=== PATIENT | female | born 1940 | race Caucasian/White ===

== ENCOUNTER 2018-08-30 08:00 | Outpatient (CLI) | payer MEDICARE, BC ==
[2018-08-30] MEDS ORDERED: BUPIVACAINE 0.5 % PF 150 MG/30 ML VIAL IJ ONE (09:30)
[2018-08-30] MEDS ORDERED: ETHYL CHLORIDE SPRAY 1 EA BOTTLE TP ONE (09:30)
== END 2018-08-30 23:59 | disposition home or self-care (01) ==
LOC: WOU 08:00
PROVIDERS: ATTEND Podiatrist Foot & Ankle Surgery
DX: I87.2 Venous insufficiency (chronic) (peripheral) (principal); L97.218 Non-pressure chronic ulcer of right calf with other specified severity; S81.811S Laceration without foreign body, right lower leg, sequela; W45.8XXS Other foreign body or object entering through skin, sequela; E78.5 Hyperlipidemia, unspecified; I25.10 Atherosclerotic heart disease of native coronary artery without angina pectoris; Z79.82 Long term (current) use of aspirin; Z79.899 Other long term (current) drug therapy; L03.115 Cellulitis of right lower limb; R60.0 Localized edema
CPT/HCPCS: 11042; 87070; A6402; J3490

== ENCOUNTER 2018-09-03 10:30 | Outpatient (CLI) | payer MEDICARE, BC | END 2018-09-03 23:59 | disposition home or self-care (01) | LOC: WOU 10:30 | PROVIDERS: ATTEND Podiatrist Foot & Ankle Surgery | DX: I87.2 Venous insufficiency (chronic) (peripheral) (principal); L97.212 Non-pressure chronic ulcer of right calf with fat layer exposed; L03.90 Cellulitis, unspecified; R60.0 Localized edema; M19.90 Unspecified osteoarthritis, unspecified site; Z79.82 Long term (current) use of aspirin; Z79.01 Long term (current) use of anticoagulants | CPT/HCPCS: 11042; A6402 ==

== ENCOUNTER 2018-09-06 10:14 | Outpatient (CLI) | payer MEDICARE, BC | END 2018-09-06 23:59 | disposition home or self-care (01) | LOC: WOU 10:14 | PROVIDERS: ATTEND Podiatrist Foot & Ankle Surgery | DX: I87.2 Venous insufficiency (chronic) (peripheral) (principal); L97.812 Non-pressure chronic ulcer of other part of right lower leg with fat layer exposed; R60.0 Localized edema; Z79.01 Long term (current) use of anticoagulants; Z91.040 Latex allergy status | CPT/HCPCS: 11042; A6402; J3490; 11044 ==

== ENCOUNTER 2018-09-17 10:00 | Outpatient (CLI) | payer MEDICARE, BC | END 2018-09-17 23:59 | disposition home or self-care (01) | LOC: WOU 10:00 | PROVIDERS: ATTEND Podiatrist Foot & Ankle Surgery | DX: I87.2 Venous insufficiency (chronic) (peripheral) (principal); L97.812 Non-pressure chronic ulcer of other part of right lower leg with fat layer exposed; R60.0 Localized edema; Z79.02 Long term (current) use of antithrombotics/antiplatelets; Z79.82 Long term (current) use of aspirin | CPT/HCPCS: 15275; A6402 ==

== ENCOUNTER 2018-09-24 10:00 | Outpatient (CLI) | payer MEDICARE, BC | END 2018-09-24 23:59 | disposition home or self-care (01) | LOC: WOU 10:00 | PROVIDERS: ATTEND Podiatrist Foot & Ankle Surgery | DX: I87.2 Venous insufficiency (chronic) (peripheral) (principal); L97.812 Non-pressure chronic ulcer of other part of right lower leg with fat layer exposed; R60.0 Localized edema; Z79.82 Long term (current) use of aspirin | CPT/HCPCS: A6402; G0463 ==

== ENCOUNTER 2018-10-01 10:00 | Outpatient (CLI) | payer MEDICARE, BC | END 2018-10-01 23:59 | disposition home or self-care (01) | LOC: WOU 10:00 | PROVIDERS: ATTEND Podiatrist Foot & Ankle Surgery | DX: I87.2 Venous insufficiency (chronic) (peripheral) (principal); L97.812 Non-pressure chronic ulcer of other part of right lower leg with fat layer exposed; R60.0 Localized edema; Z79.82 Long term (current) use of aspirin | CPT/HCPCS: 15271; A6402; Q4133 ==

== ENCOUNTER 2018-10-08 10:05 | Outpatient (CLI) | payer MEDICARE, BC | END 2018-10-08 23:59 | disposition home or self-care (01) | LOC: WOU 10:05 | PROVIDERS: ATTEND Podiatrist Foot & Ankle Surgery | DX: I87.2 Venous insufficiency (chronic) (peripheral) (principal); L97.818 Non-pressure chronic ulcer of other part of right lower leg with other specified severity; R60.9 Edema, unspecified; L90.9 Atrophic disorder of skin, unspecified; Z79.01 Long term (current) use of anticoagulants; Z79.82 Long term (current) use of aspirin | CPT/HCPCS: A6402; G0463 ==

== ENCOUNTER 2018-10-15 11:30 | Outpatient (CLI) | payer MEDICARE, BC | END 2018-10-15 23:59 | disposition home or self-care (01) | LOC: WOU 11:30 | PROVIDERS: ATTEND Podiatrist Foot & Ankle Surgery | DX: I87.2 Venous insufficiency (chronic) (peripheral) (principal); L97.818 Non-pressure chronic ulcer of other part of right lower leg with other specified severity; R60.0 Localized edema; L90.9 Atrophic disorder of skin, unspecified; Z79.82 Long term (current) use of aspirin | CPT/HCPCS: A6402; G0463 ==

== ENCOUNTER 2018-10-29 10:10 | Outpatient (CLI) | payer MEDICARE, BC | END 2018-10-29 23:59 | disposition home or self-care (01) | LOC: WOU 10:10 | PROVIDERS: ATTEND Podiatrist Foot & Ankle Surgery | DX: I87.2 Venous insufficiency (chronic) (peripheral) (principal); R60.0 Localized edema; I83.91 Asymptomatic varicose veins of right lower extremity; Z79.82 Long term (current) use of aspirin | CPT/HCPCS: A6402; G0463 ==

== ENCOUNTER 2019-10-01 12:40 | Outpatient (CLI) | payer MEDICARE, BC | END 2019-10-01 23:59 | disposition home or self-care (01) | LOC: WOU 12:40 | PROVIDERS: ATTEND Podiatrist Foot & Ankle Surgery | DX: I83.018 Varicose veins of right lower extremity with ulcer other part of lower leg (principal); Z79.82 Long term (current) use of aspirin; I25.10 Atherosclerotic heart disease of native coronary artery without angina pectoris; E78.5 Hyperlipidemia, unspecified; Z79.899 Other long term (current) drug therapy; L03.115 Cellulitis of right lower limb; L97.212 Non-pressure chronic ulcer of right calf with fat layer exposed | CPT/HCPCS: 11042; 87070-TC; 87075-TC ==

== ENCOUNTER 2019-10-07 10:10 | Outpatient (CLI) | payer MEDICARE, BC | END 2019-10-07 23:59 | disposition home or self-care (01) | LOC: WOU 10:10 | PROVIDERS: ATTEND Podiatrist Foot & Ankle Surgery | DX: I87.2 Venous insufficiency (chronic) (peripheral) (principal); L97.212 Non-pressure chronic ulcer of right calf with fat layer exposed; L03.115 Cellulitis of right lower limb; Z79.82 Long term (current) use of aspirin | CPT/HCPCS: 11042 ==

== ENCOUNTER 2019-10-14 09:05 | Outpatient (CLI) | payer MEDICARE, BC | END 2019-10-14 23:59 | disposition home or self-care (01) | LOC: WOU 09:05 | PROVIDERS: ATTEND Podiatrist Foot & Ankle Surgery | DX: I87.2 Venous insufficiency (chronic) (peripheral) (principal); L97.212 Non-pressure chronic ulcer of right calf with fat layer exposed; L03.115 Cellulitis of right lower limb; Z79.82 Long term (current) use of aspirin | CPT/HCPCS: 11042 ==

== ENCOUNTER 2019-10-31 10:05 | Outpatient (CLI) | payer MEDICARE, BC | END 2019-10-31 23:59 | disposition home or self-care (01) | LOC: WOU 10:05 | PROVIDERS: ATTEND Podiatrist Foot & Ankle Surgery | DX: I87.2 Venous insufficiency (chronic) (peripheral) (principal); L97.212 Non-pressure chronic ulcer of right calf with fat layer exposed; Z79.01 Long term (current) use of anticoagulants; Z79.82 Long term (current) use of aspirin | CPT/HCPCS: 11042 ==

== ENCOUNTER 2019-11-07 10:05 | Outpatient (CLI) | payer MEDICARE, BC | END 2019-11-07 23:59 | disposition home or self-care (01) | LOC: WOU 10:05 | PROVIDERS: ATTEND Podiatrist Foot & Ankle Surgery | DX: I87.2 Venous insufficiency (chronic) (peripheral) (principal); L97.212 Non-pressure chronic ulcer of right calf with fat layer exposed; Z79.01 Long term (current) use of anticoagulants; Z79.82 Long term (current) use of aspirin | CPT/HCPCS: 15271; Q4186 ×2 ==

== ENCOUNTER 2019-11-14 10:18 | Outpatient (CLI) | payer MEDICARE, BC | END 2019-11-14 23:59 | disposition home or self-care (01) | LOC: WOU 10:18 | PROVIDERS: ATTEND Podiatrist Foot & Ankle Surgery | DX: I87.2 Venous insufficiency (chronic) (peripheral) (principal); L97.212 Non-pressure chronic ulcer of right calf with fat layer exposed; Z79.82 Long term (current) use of aspirin | CPT/HCPCS: G0463 ==

== ENCOUNTER 2019-11-21 10:10 | Outpatient (CLI) | payer MEDICARE, BC | END 2019-11-21 23:59 | disposition home or self-care (01) | LOC: WOU 10:10 | PROVIDERS: ATTEND Podiatrist Foot & Ankle Surgery | DX: I87.311 Chronic venous hypertension (idiopathic) with ulcer of right lower extremity (principal); L97.212 Non-pressure chronic ulcer of right calf with fat layer exposed; I87.2 Venous insufficiency (chronic) (peripheral); Z79.01 Long term (current) use of anticoagulants | CPT/HCPCS: 15271; Q4186 ==

== ENCOUNTER 2019-11-28 10:05 | Outpatient (CLI) | payer MEDICARE, BC | END 2019-11-28 23:59 | disposition home or self-care (01) | LOC: WOU 10:05 | PROVIDERS: ATTEND Podiatrist Foot & Ankle Surgery | DX: I87.311 Chronic venous hypertension (idiopathic) with ulcer of right lower extremity (principal); L97.212 Non-pressure chronic ulcer of right calf with fat layer exposed; I87.2 Venous insufficiency (chronic) (peripheral); Z79.01 Long term (current) use of anticoagulants; Z79.82 Long term (current) use of aspirin | CPT/HCPCS: 15271; Q4186 ==

== ENCOUNTER 2019-12-05 10:15 | Outpatient (CLI) | payer MEDICARE, BC | END 2019-12-05 23:59 | disposition home or self-care (01) | LOC: WOU 10:15 | PROVIDERS: ATTEND Podiatrist Foot & Ankle Surgery | DX: I87.311 Chronic venous hypertension (idiopathic) with ulcer of right lower extremity (principal); L97.218 Non-pressure chronic ulcer of right calf with other specified severity; I87.2 Venous insufficiency (chronic) (peripheral); Z79.01 Long term (current) use of anticoagulants; Z79.82 Long term (current) use of aspirin | CPT/HCPCS: G0463 ==

== ENCOUNTER 2019-12-12 10:05 | Outpatient (CLI) | payer MEDICARE, BC | END 2019-12-12 23:59 | disposition home or self-care (01) | LOC: WOU 10:05 | PROVIDERS: ATTEND Podiatrist Foot & Ankle Surgery | DX: I87.2 Venous insufficiency (chronic) (peripheral) (principal); M20.42 Other hammer toe(s) (acquired), left foot; M20.41 Other hammer toe(s) (acquired), right foot; L84 Corns and callosities; M79.672 Pain in left foot; M79.671 Pain in right foot; Z79.82 Long term (current) use of aspirin | CPT/HCPCS: G0463 ==